=== PATIENT | female | born 1975 ===

== ENCOUNTER 2024-09-04 05:00 | Day surgery (SDC) | payer OTHER ==
[2024-08-29 14:13] VITALS: BP 108/74
[~2024-09-04] VITALS: Ht 157.5 cm; Wt 49.0 kg
[~2024-09-04 05:00] MED LIST: FERROUS SULFATE 325 MG PO; LEVOTHYROXINE75 MC1 PO
[2024-09-04] MEDS ORDERED: CEFAZOLIN SODIUM 1,000 MG VIAL ONE (10:30)
[2024-09-04] MEDS ORDERED: BUPIVACAINE HCL/MPF 0.5% 30ML VIAL ONE (10:31)
[2024-09-04] MEDS ORDERED: LIDOCAINE HCL 1%/EPINEPHRINE 20ML VIAL IJ ONE (10:31)
[2024-09-04] MEDS ORDERED: POVIDONE-IODINE 118 ML BOTT TOP ONE (10:32)
== END 2024-09-04 15:15 | disposition home or self-care (01) ==
LOC: CIR.AMB 05:00
PROVIDERS: ATTEND Orthopaedic Surgery Hand Surgery
DX: G56.01 Carpal tunnel syndrome, right upper limb (principal)